=== PATIENT | male | born 1980 | race Caucasian/White ===

== ENCOUNTER 2018-06-13 23:55 | Emergency (ER) | payer MEDICAID ==
[2018-06-14 00:21] VITALS: BP 148/101
[2018-06-14] MEDS ORDERED: Sodium Chloride 0.9% 1,000 ML IV ONE (00:30)
[2018-06-14] MEDS ORDERED: cefTRIAXone 1 GM in Premix Bag 1 BAG IV ONE (00:32)
--- NOTE | 2018-06-14 00:32 | EDM.PDOC ---
ED HPI GENERAL MEDICAL PROBLEM - General Chief Complaint: General Stated Complaint: right side of face swollen Time Seen by Provider: 06/14/18 00:32 Source of Information: Reports: Patient - History of Present Illness INITIAL COMMENTS - FREE TEXT/NARRATIVE: HISTORY AND PHYSICAL: History of present illness: [Patient was seen and [facility] by practitioner Jennifer He was provided Rocephin amoxicillin and Bactrim, he has a history of odontoid disease poor dentition previous dental abscess No fever nausea vomiting chills sweats moderate swelling of right cheek nontender along right gumline] Review of systems: As per history of present illness and below otherwise all systems reviewed and negative. Past medical history: As per history of present illness and as reviewed below otherwise noncontributory. Surgical history: As per history of present illness and as reviewed below otherwise noncontributory. Social history: No reported history of drug or alcohol abuse. Family history: As per history of present illness and as reviewed below otherwise noncontributory. Physical exam: HEENT: Atraumatic, normocephalic, pupils reactive, negative for conjunctival pallor or scleral icterus, mucous membranes moist, throat clear, neck supple, nontender, trachea midline. Lungs: Clear to auscultation, breath sounds equal bilaterally, chest nontender. Heart: S1S2, regular, negative for clicks, rubs, or JVD. Abdomen: Soft, nondistended, nontender. Negative for masses or hepatosplenomegaly. Negative for costovertebral tenderness. Pelvis: Stable nontender. Genitourinary: Deferred. Rectal: Deferred. Extremities: Atraumatic, negative for cords or calf pain. Neurovascular unremarkable. Neuro: Awake, alert, oriented. Cranial nerves II through XII unremarkable. Cerebellum unremarkable. Motor and sensory unremarkable throughout. Exam nonfocal. Diagnostics: [CBC CMP ] Therapeutics: []Gram Rocephin IM Continue amoxicillin Bactrim as prescribed by your provider follow-up with oral surgeon Impression: [] dental abscess Definitive disposition and diagnosis as appropriate pending reevaluation and review of above. right side face Pain Score (Numeric/FACES): 5 - Related Data Allergies Allergy/AdvReac Type Severity Reaction Status Date / Time cat dander Allergy Itching Verified 10/19/14 16:15 haloperidol [From Haldol] Allergy Other Verified 06/14/18 00:18 Home Meds: Home Meds . [No Known Home Meds] 01/26/16 [History] Past Medical History Other HEENT History: Broken teeth Cardiovascular History: Reports: None Respiratory History: Reports: None Gastrointestinal History: Reports: None Other Gastrointestinal History: "acid reflux" Genitourinary History: Reports: None Musculoskeletal History: Reports: None Neurological History: Reports: None Psychiatric History: Reports: ADHD, Anxiety, Bipolar, Depression, Panic Attack Endocrine/Metabolic History: Reports: None Hematologic History: Reports: None Immunologic History: Reports: None Oncologic (Cancer) History: Reports: None Dermatologic History: Reports: None - Infectious Disease History Infectious Disease History: Reports: None - Past Surgical History Head Surgeries/Procedures: Reports: None Social & Family History - Family History Family Medical History: Noncontributory - Caffeine Use Caffeine Use: Reports: Soda - Recreational Drug Use Recreational Drug Use: Yes ED ROS GENERAL - Review of Systems Review Of Systems: See Below ED EXAM, GENERAL - Physical Exam Exam: See Below Course - Vital Signs Last Recorded V/S: Last Vital Signs Temp 97.6 F 06/14/18 00:18 Pulse 89 06/14/18 00:18 Resp 22 H 06/14/18 00:18 BP 148/101 H 06/14/18 00:18 Pulse Ox 96 06/14/18 00:18 - Orders/Labs/Meds Labs: Laboratory Tests 06/14/18 06/14/18 Range/Units 00:42 00:42 WBC 17.26 H (4.0-11.0) K/uL RBC 4.80 (4.50-5.90) M/uL Hgb 15.7 (13.0-17.0) g/dL Hct 44.7 (38.0-50.0) % MCV 93.1 (80.0-98.0) fL MCH 32.7 H (27.0-32.0) pg MCHC 35.1 (31.0-37.0) g/dL RDW Std Deviation 47.7 (28.0-62.0) fl RDW Coeff of Omar 14 (11.0-15.0) % Plt Count 234 (150-400) K/uL MPV 11.30 (7.40-12.00) fL Neut % (Auto) 67.2 (48.0-80.0) % Lymph % (Auto) 20.8 (16.0-40.0) % Cotton % (Auto) 10.1 (0.0-15.0) % Eos % (Auto) 1.4 (0.0-7.0) % Baso % (Auto) 0.5 (0.0-1.5) % Neut # (Auto) 11.6 H (1.4-5.7) K/uL Lymph # (Auto) 3.6 H (0.6-2.4) K/uL Cotton # (Auto) 1.8 H (0.0-0.8) K/uL Eos # (Auto) 0.2 (0.0-0.7) K/uL Baso # (Auto) 0.1 (0.0-0.1) K/uL Nucleated RBC % 0.0 /100WBC Nucleated RBCs # 0 K/uL Sodium 135 L (136-148) mmol/L Potassium 3.4 L (3.5-5.1) mmol/L Chloride 101 (98-107) mmol/L Carbon Dioxide 23.9 (21.0-32.0) mmol/L BUN 8 (7.0-18.0) mg/dL Creatinine 1.0 (0.8-1.3) mg/dL Est Cr Clr Drug Dosing 92.16 mL/min Estimated GFR (MDRD) > 60.0 ml/min Glucose 134 H (74-106) mg/dL Calcium 8.8 (8.5-10.1) mg/dL Total Bilirubin 0.3 (0.2-1.0) mg/dL AST 20 (15-37) IU/L ALT 36 (14-63) IU/L Alkaline Phosphatase 92 (46-116) U/L Total Protein 7.5 (6.4-8.2) g/dL Albumin 3.6 (3.4-5.0) g/dL Globulin 3.9 (2.6-4.0) g/dL Albumin/Globulin Ratio 0.9 (0.9-1.6) Meds: Medications Discontinued Medications Generic Name Dose Route Start Last Admin Trade Name Freq PRN Reason Stop Dose Admin Sodium Chloride 1,000 mls @ 999 mls/hr 06/14/18 00:30 06/14/18 00:53 Normal Saline IV 06/14/18 01:30 999 mls/hr STAT ONE Administration Ceftriaxone Sodium/Dextrose 1 50 mls @ 100 mls/hr 06/14/18 00:32 06/14/18 00: 53 gm/ Premix IV 06/14/18 01:01 100 mls/hr ONETIME ONE Administration Iopamidol 75 ml 06/14/18 02:49 06/14/18 02:50 Isovue Multipack-370 (76%) IVPUSH 06/14/18 02:50 75 ml ONETIME STA Administration Departure - Departure Time of Disposition: 03:21 Disposition: Home, Self-Care 01 Condition: Good Clinical Impression: Dental abscess - Discharge Information Referrals: Kelsie Rodriguez NP [Primary Care Provider] - Forms: ED Department Discharge Additional Instructions: Continue medications as provided by her primary care Return if symptoms persist or worsen Follow up with oral surgeon for continued management The following information is given to patients seen in the emergency department who are being discharged to home. This information is to outline your options for follow-up care. We provide all patients seen in our emergency department with a follow-up referral. The need for follow-up, as well as the timing and circumstances, are variable depending upon the specifics of your emergency department visit. If you don't have a primary care physician on staff, we will provide you with a referral. We always advise you to contact your personal physician following an emergency department visit to inform them of the circumstance of the visit and for follow-up with them and/or the need for any referrals to a consulting specialist. The emergency department will also refer you to a specialist when appropriate. This referral assures that you have the opportunity for follow-up care with a specialist. All of these measure are taken in an effort to provide you with optimal care, which includes your follow-up. Under all circumstances we always encourage you to contact your private physician who remains a resource for coordinating your care. When calling for follow-up care, please make the office aware that this follow-up is from your recent emergency room visit. If for any reason you are refused follow-up, please contact the [facility] emergency department at and asked to speak to the emergency department charge nurse.
[2018-06-14 01:11] LABS: CHLORIDE,CL 101 mmol/L (98-107); SODIUM,NA 135 mmol/L (136-148)
[2018-06-14] MEDS ORDERED: Iopamidol 755 MG/ML 500 ML Multipack Bottle IVPUSH STA (02:49)
--- NOTE | 2018-06-14 03:18 | CT ---
INDICATION: Pain and swelling of right face TECHNIQUE: CT maxillofacial 75 cc Isovue 370 contrast. COMPARISON: None FINDINGS: Facial bones: No fractures or bone lesions. Specifically the nasal bones, temporomandibular joints, maxilla and mandible appear intact. There is poor dentition with multiple dental caries. Orbits and globes: Unremarkable. Sinuses: Thickening of the right maxillary sinus mucosa. Soft tissues: Soft tissue edema of the right cheek and right periorbital region. No abscess or soft tissue gas identified. Right cervical adenopathy measures up to 1.0 cm in diameter. IMPRESSION: Soft tissue edema of the right cheek and right periorbital region consistent with cellulitis. No abscess or soft tissue gas. Reactive right cervical adenopathy. Multiple dental caries. Please note that all CT scans at this facility use dose modulation, iterative reconstruction, and/or weight-based dosing when appropriate to reduce radiation dose to as low as reasonably achievable. Dictated by Zhane Prajapati MD @ Jun 14 2018 3:18AM Signed by Dr. Zhane Prajapati @ Jun 14 2018 3:18AM
== END 2018-06-14 03:43 | disposition home or self-care (01) ==
LOC: MW.ED 23:55
DX: K04.7 Periapical abscess without sinus (principal); Z91.09 Other allergy status, other than to drugs and biological substances; Z88.8 Allergy status to other drugs, medicaments and biological substances
CPT/HCPCS: 70487; 80053; 85025; 96361; 96365; 99283; J0696; J7040; Q9967; 99282

== ENCOUNTER 2020-04-22 17:02 | Emergency (ER) | payer SELFPAY ==
--- NOTE | 2020-04-22 17:37 | EDM.PDOC ---
<Prashanth Cortez - Last Filed: 04/22/20 19:47> ED HPI GENERAL MEDICAL PROBLEM - General Chief Complaint: Gastrointestinal Problem Stated Complaint: DIZZINESS Time Seen by Provider: 04/22/20 17:07 Source of Information: Reports: Patient History Limitations: Reports: No Limitations - Related Data Allergies Allergy/AdvReac Type Severity Reaction Status Date / Time cat dander Allergy Itching Verified 04/22/20 17:17 haloperidol [From Haldol] Allergy Other Verified 04/22/20 17:17 Home Meds: Home Meds OLANZapine [Olanzapine] 5 mg PO DAILY 04/22/20 [History] QUEtiapine [SEROquel] 25 mg PO DAILY 04/22/20 [History] buPROPion HCL [Wellbutrin Xl] 150 mg PO DAILY 04/22/20 [History] Course - Re-Assessments/Exams Free Text/Narrative Re-Assessment/Exam: 04/22/20 19:48 CT imaging grossly unremarkable. Had a long discussion with patient explaining that he needs to follow-up with general surgery versus gastroenterology for colonoscopy to definitively rule out colon cancer. Patient understands. Return precautions were discussed at length Departure - Departure Time of Disposition: 19:48 Disposition: Home, Self-Care 01 Clinical Impression: Hematochezia - Discharge Information Instructions: Lower Gastrointestinal Bleeding Referrals: PCP,None [Primary Care Provider] - Forms: ED Department Discharge Additional Instructions: Take stool softeners, drink plenty of liquids, use baby wipes instead of toilet paper. Can appointment with the surgeon to be reevaluated for possible proximal anoscopy sigmoidoscopy and colonoscopy [facility] - General Surgery [address], [address] [place] [address] You can also follow up with GI in [place] if preferred: [address] [address] The following information is given to patients seen in the emergency department who are being discharged to home. This information is to outline your options for follow-up care. We provide all patients seen in our emergency department with a follow-up referral. The need for follow-up, as well as the timing and circumstances, are variable depending upon the specifics of your emergency department visit. If you don't have a primary care physician on staff, we will provide you with a referral. We always advise you to contact your personal physician following an emergency department visit to inform them of the circumstance of the visit and for follow-up with them and/or the need for any referrals to a consulting specialist. The emergency department will also refer you to a specialist when appropriate. This referral assures that you have the opportunity for follow-up care with a specialist. All of these measure are taken in an effort to provide you with optimal care, which includes your follow-up. Under all circumstances we always encourage you to contact your private physician who remains a resource for coordinating your care. When calling for follow-up care, please make the office aware that this follow-up is from your recent emergency room visit. If for any reason you are refused follow-up, please contact the [facility] Emergency Department at and asked to speak to the emergency department charge nurse. <Malcolm Patel - Last Filed: 04/23/20 11:17> ED HPI GENERAL MEDICAL PROBLEM - History of Present Illness INITIAL COMMENTS - FREE TEXT/NARRATIVE: History of present illness: [Patient is a 39-year-old male presenting to the ED with bloody diarrhea x1 day. Patient's history is significant for anal fissures, and patient's family history is significant for polyps and cancer in other sites in his father and paternal grandfather. Patient states that 2 days ago he had diarrhea, and he states the next bowel movement was hard. He states his bowel movements went from soft to hard until today. He states at 0200 on 04/22/20, he experienced dizziness and presyncopal symptoms that resolved with time. Patient states that 1 hour later he experienced bright red hematochezia with soft stool. Patient s tates he has not had a bowel movement since this episode and is currently not experiencing any pain in his rectum or abdomen.] Review of systems: As per history of present illness and below otherwise all systems reviewed and negative. Past medical history: As per history of present illness and as reviewed below otherwise noncontributory. Surgical history: As per history of present illness and as reviewed below otherwise noncontributory. Social history: No reported history of drug or alcohol abuse. Family history: As per history of present illness and as reviewed below otherwise nonco ntributory. Physical exam: Constitutional - well developed, well-nourished and in no acute distress HEENT - normocephalic, no evidence of trauma - external nose and mouth normal - no mass in neck and no JVD - mucosae moist EYES - full EOM, PERRL, no icterus - no evidence of inflammation, injection, or drainage Respiratory - no respiratory distress, equal bilateral expansion, lungs clear to auscultation and no abnormal lung sounds Cardiovascular - Regular Rhythm with S1 and S2 appreciated and no murmur, gallop or rub. GI - abdomen soft without distension or organomegaly - normal bowel sounds - no guard or rebound Rectal - Anus is without scabs, cuts, fissures, rashes, lesions. Dried blood and dried stool were noted around the anus and within the gluteal cleft. Rectum is soft, within normal limits, and stool palpated is soft. Bright red blood was present on exam glove. Soft, light brown stool was present on exam glove. Hemoccult was positive. Prostate was nontender and the prostate size was within normal limits. Musculoskeletal no gross deformity of long bones or joints - no tenderness, swelling or edema Neurologic - Alert and oriented times four - CN II-XII grossly intact - motor sensory and coordination symmetrically normal Psychiatric - appropriate mood and affect with normal thought content Hematologic - No petechiae or purpura - mucosa appropriate color and sclera not pale - normal nail bed color and refill Integument - no rash or evidence of trauma - normal turgor Diagnostics: [CBC, CMP, lipase, CT abdomen/pelvis with contrast, Hemoccult] Therapeutics: [Normal saline] Impression: [] Plan: [] Definitive disposition and diagnosis as appropriate pending reevaluation and review of above. Past Medical History Other HEENT History: Broken teeth Cardiovascular History: Reports: None Respiratory History: Reports: None Gastrointestinal History: Reports: None Other Gastrointestinal History: "acid reflux" Genitourinary History: Reports: None Musculoskeletal History: Reports: None Neurological History: Reports: None Psychiatric History: Reports: ADHD, Anxiety, Bipolar, Depression, Panic Attack Endocrine/Metabolic History: Reports: None Hematologic History: Reports: None Immunologic History: Reports: None Oncologic (Cancer) History: Reports: None Dermatologic History: Reports: None - Infectious Disease History Infectious Disease History: Reports: None - Past Surgical History Head Surgeries/Procedures: Reports: None Social & Family History - Family History Family Medical History: No Pertinent Family History - Caffeine Use Caffeine Use: Reports: Soda - Recreational Drug Use Recreational Drug Use: Yes ED ROS GENERAL - Review of Systems Review Of Systems: Comprehensive ROS is negative, except as noted in HPI. ED EXAM, GENERAL - Physical Exam Exam: See Below Free Text/Narrative:: My physical exam is in the HPI Course - Vital Signs Text/Narrative:: At the end of my shift I turned the case over to my partner who will make a disposition. Last Recorded V/S: Last Vital Signs Temp 36.6 C 04/22/20 20:00 Pulse 85 04/22/20 20:00 Resp 17 04/22/20 20:00 BP 131/85 04/22/20 20:00 Pulse Ox 94 L 04/22/20 20:00 Orthostatic Blood Pressure [ 135/87 Standing] Orthostatic Blood Pressure [ 122/82 Sitting] Orthostatic Blood Pressure [ 127/82 Supine] - Orders/Labs/Meds Orders: Active Orders 24 hr Category Date Time Status Saline Lock Insert [OM.PC] Stat Oth 04/22/20 17:39 Ordered Labs: Laboratory Tests 04/22/20 04/22/20 Range/Units 17:53 17:53 WBC 13.80 H (4.0-11.0) K/uL RBC 4.73 (4.50-5.90) M/uL Hgb 14.9 (13.0-17.0) g/dL Hct 42.7 (38.0-50.0) % MCV 90.3 (80.0-98.0) fL MCH 31.5 (27.0-32.0) pg MCHC 34.9 (31.0-37.0) g/dL RDW Std Deviation 43.3 (28.0-62.0) fl RDW Coeff of Omar 13 (11.0-15.0) % Plt Count 247 (150-400) K/uL MPV 11.20 (7.40-12.00) fL Neut % (Auto) 61.7 (48.0-80.0) % Lymph % (Auto) 28.1 (16.0-40.0) % [place] % (Auto) 7.8 (0.0-15.0) % Eos % (Auto) 1.8 (0.0-7.0) % Baso % (Auto) 0.6 (0.0-1.5) % Neut # (Auto) 8.5 H (1.4-5.7) K/uL Lymph # (Auto) 3.9 H (0.6-2.4) K/uL [place]ome # (Auto) 1.1 H (0.0-0.8) K/uL Eos # (Auto) 0.3 (0.0-0.7) K/uL Baso # (Auto) 0.1 (0.0-0.1) K/uL Nucleated RBC % 0.0 /100WBC Nucleated RBCs # 0 K/uL Sodium 137 (136-148) mmol/L Potassium 3.6 (3.5-5.1) mmol/L Chloride 102 (98-107) mmol/L Carbon Dioxide 26.4 (21.0-32.0) mmol/L BUN 14 (7.0-18.0) mg/dL Creatinine 1.0 (0.8-1.3) mg/dL Est Cr Clr Drug Dosing 90.38 mL/min Estimated GFR (MDRD) > 60.0 ml/min Glucose 120 H (74-106) mg/dL Calcium 8.6 (8.5-10.1) mg/dL Total Bilirubin 0.2 (0.2-1.0) mg/dL AST 23 (15-37) IU/L ALT 35 (14-63) IU/L Alkaline Phosphatase 82 (46-116) U/L Total Protein 6.9 (6.4-8.2) g/dL Albumin 3.4 (3.4-5.0) g/dL Globulin 3.5 (2.6-4.0) g/dL Albumin/Globulin Ratio 1.0 (0.9-1.6) Lipase 145 (73-393) U/L Meds: Medications Discontinued Medications Generic Name Dose Route Start Last Admin Trade Name Freq PRN Reason Stop Dose Admin Sodium Chloride 1,000 mls @ 999 mls/hr 04/22/20 17:40 04/22/20 18:00 Normal Saline IV 04/22/20 18:40 999 mls/hr .BOLUS ONE Administration Iopamidol 100 ml 04/22/20 18:47 04/22/20 18:47 Iopamidol 755 Mg/Ml 500 Ml Multipack Bottle IVPUSH 04/22/20 18:48 100 ml ONETIME ONE Administration Sodium Chloride 10 ml 04/22/20 17:39 04/22/20 18:00 Sodium Chloride 0.9% 10 Ml Syringe FLUSH 10 ml ASDIRECTED PRN Administration Keep Vein Open Sodium Chloride 2.5 ml 04/22/20 17:39 04/22/20 18:00 Sodium Chloride 0.9% 2.5 Ml Syringe FLUSH 2.5 ml ASDIRECTED PRN Administration Keep Vein Open Departure - Departure Condition: Good Sepsis Event Note (ED) - Evaluation Sepsis Screening Result: No Definite Risk - My Orders Last 24 Hours: My Active Orders 04/22/20 17:39 Saline Lock Insert [OM.PC] Stat - Assessment/Plan Last 24 Hours: My Active Orders 04/22/20 17:39 Saline Lock Insert [OM.PC] Stat
[2020-04-22] MEDS ORDERED: Sodium Chloride 0.9% 2.5 ML Syringe FLUSH PRN (17:39)
[2020-04-22] MEDS ORDERED: Sodium Chloride 0.9% 10 ML Syringe FLUSH PRN (17:39)
[2020-04-22] MEDS ORDERED: Sodium Chloride 0.9% 1,000 ML IV ONE (17:40)
[2020-04-22 18:25] LABS: BLOOD UREA NITROGEN,BUN 14 mg/dL (7.0-18.0); CARBON DIOXIDE,CO2 26.4 mmol/L (21.0-32.0); CHLORIDE,CL 102 mmol/L (98-107); GLUCOSE RANDOM 120 mg/dL (74-106); LIPASE 145 U/L (73-393); POTASSIUM,K 3.6 mmol/L (3.5-5.1); SODIUM,NA 137 mmol/L (136-148)
[2020-04-22] MEDS ORDERED: Iopamidol 755 MG/ML 500 ML Multipack Bottle IVPUSH ONE (18:47)
--- NOTE | 2020-04-22 19:31 | CT ---
INDICATION: Hematochezia TECHNIQUE: CT abdomen and pelvis acquired with IV contrast. 100 mL of Isovue 370 administered. COMPARISON: None available FINDINGS: Lower chest: Unremarkable. Liver: A 2.1 x 2.0 x 2.3 cm inferior right hepatic low-density lesion, demonstrating discontinuous foci of nodular peripheral enhancement. Spleen: Unremarkable. Pancreas: Unremarkable. Gallbladder and bile ducts: Unremarkable. Adrenal glands: Unremarkable. Kidneys: A pelvic right kidney, demonstrating a partially duplicated collecting system. No hydronephrosis. GI tract: No bowel obstruction. A normal appendix. Few descending colon diverticula without moshe diverticulitis. Mild wall thickening in a short segment of the distal descending colon, partially related to focal under distension/peristalsis. Mild focal asymmetrical thickening of the left rectal wall could be related to fecal material. Vascular structures: Unremarkable. Lymph nodes: Unremarkable. Miscellaneous: No significant free fluid or free air. Borderline inguinal lymph nodes. Pelvic Organs: Unremarkable. Bones: An apparently chronic unfused posterolateral left 10th rib fracture. Bilateral L5 spondylolysis. IMPRESSION: No evidence of appendicitis, diverticulitis or bowel obstruction. Mild wall thickening of a short segment of the distal descending colon, partially related to under distention, however mild focal colitis is considered. Mild focal asymmetrical thickening of the left rectal wall could be related to fecal material. Given the history, formal colonic evaluation is recommended to exclude colonic neoplasm. A heterogeneously enhancing 2.3 cm right hepatic lesion suggestive of a hemangioma. This can be confirmed with contrast MRI. A pelvic right kidney. Please note that all CT scans at this facility use dose modulation, iterative reconstruction, and/or weight-based dosing when appropriate to reduce radiation dose to as low as reasonably achievable. Dictated by Nehemias Singh MD @ Apr 22 2020 7:04PM Signed by Dr. Nehemias Singh @ Apr 22 2020 7:29PM
[2020-04-22 20:19] VITALS: BP 131/85; PULSE 85
== END 2020-04-22 20:02 | disposition home or self-care (01) ==
LOC: MW.ED 17:02
DX: K92.1 Melena (principal); Z91.048 Other nonmedicinal substance allergy status; Z88.8 Allergy status to other drugs, medicaments and biological substances; Z79.899 Other long term (current) drug therapy
CPT/HCPCS: 36415; 74177; 80053; 83690; 85025; 99284; J7030; Q9967; 99283

== ENCOUNTER 2020-11-05 12:16 | Emergency (ER) | payer SELFPAY ==
--- NOTE | 2020-11-05 12:46 | EDM.PDOC ---
ED HPI GENERAL MEDICAL PROBLEM - General Chief Complaint: Laceration Stated Complaint: CUT ON THE RIGHT HAND POINTER FINGER Time Seen by Provider: 11/05/20 12:38 Source of Information: Reports: Patient History Limitations: Reports: No Limitations - History of Present Illness INITIAL COMMENTS - FREE TEXT/NARRATIVE: HISTORY AND PHYSICAL: History of present illness: The patient is a 40-year-old male who presents to the emergency room after eating a left index finger on a drill bit while attempting to do some household work. The patient did not do any cleansing prior to arrival. His mother did dress the wound. The patient is unsure of his last tetanus. Patient denies any fever, chills, headache, change in vision, syncope or near syncope. Denies any chest pain, back pain, shortness of breath or cough. Denies any abdominal pain, nausea, vomiting, diarrhea, constipation or dysuria. Has not noted any blood in urine or stool. Patient has been eating and drinking appropriately. Review of systems: As per history of present illness and below otherwise all systems reviewed and negative. Past medical history: As per history of present illness and as reviewed below otherwise noncontributory. Surgical history: As per history of present illness and as reviewed below otherwise noncontributory. Social history: See social history for further information Family history: As per history of present illness and as reviewed below otherwise noncontributory. Physical exam: General: Well developed and well nourished. Alert and orientated x 3. Nontoxic in appearance and in no acute distress. Vital signs are stable and have been reviewed by me. Nursing notes were reviewed. HEENT: Atraumatic, normocephalic, pupils equal and reactive bilaterally, negative for conjunctival pallor or scleral icterus, trachea midline. No drooling or trismus noted. No meningeal signs. No hot potato voice noted. Lungs: Normal work of breathing, no accessory muscles used. Skin: Intact, warm, dry. No lesions or rashes noted. Hematologic: No petechiae or purpra. Mucosa appropriate color and normal nail bed color and refill. Extremities: Left index finger with 1cm "M" shape laceration on lateral edge distal to PIP joint. Moves all extremities per self without difficulty or deficits, negative for cords or calf pain. Neurovascular unremarkable. Neuro: Awake, alert, oriented. Cranial nerves II through XII unremarkable. Cerebellum unremarkable. Motor and sensory unremarkable throughout. Exam nonfocal. Psychiatric: Mood and affect are appropriate. Normal thought process. Answering questions appropriately. Notes: *This patient was seen and evaluated during the 2019 SARS-CoV-2 novel coronavirus pandemic period. Community viral transmission is ongoing at time of this encounter and the emergency department is operating under pandemic response procedures. As stated above the patient is a 40-year-old male who presents to the emergency department after striking his left index finger with a drill bit causing a 1cm "M" shape laceration on lateral edge distal to PIP joint. Please see procedure note. The patient tolerated the skin glue and Steri-Strips well. We will use a cage fingertip splint for protection of the area. 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 I have given the patient detailed instructions on when to return to the emergency department and how to care for his Steri-Strips and skin glue. The patient is agreeable with this discharge plan. I have talked with the patient about today's findings, in addition to providing specific details for plan of care. Reassessment at the time of disposition demonstrates that the patient is in no acute distress. The patient is stable for discharge, counseling was provided and we discussed in great detail signs and symptoms that would prompt them to return to the Emergency Department. Med ication, follow up and supportive care measures were reviewed and discussed. Voices understanding and is agreeable to plan of care. Denies any further questions or concerns at this time. Therapeutics: Metal cage finger splint over tip of left index finger for promotion of healing and patient comfort to wear for 24 to 48 hours. Impression: Laceration left index finger Plan: 1. You were evaluated today on an emergent basis. Your left index finger laceration was evaluated and found to be able to be glued together with skin glue and Steri-Strips. The area clean and dry. Allow the glue to peel up on its own. Do not attempt to remove it. You will need to keep the area covered if you are working. Do not apply any antibiotic ointment while the skin glue is there. Do not submerge the area in water. If you notice any increased redness please return to the emergency room or see your primary care provider. 2. You can alternate Tylenol and ibuprofen as needed for pain and fever managem ent. 3. We encourage you to follow up with your primary care provider and/or recommended specialist in the next few days for re-evaluation and further care/management. 4. If your symptoms should worsen, new symptoms develop or any of the signs and symptoms we discussed should arise please return to the emergency room or call 911 (if needed). Definitive disposition and diagnosis as appropriate pending reevaluation and review of above. Left Finger-Index Pain Score (Numeric/FACES): 3 - Related Data Allergies Allergy/AdvReac Type Severity Reaction Status Date / Time cat dander Allergy Itching Verified 11/05/20 12:29 haloperidol [From Haldol] Allergy Other Verified 11/05/20 12:29 Home Meds: Home Meds buPROPion HCL [Wellbutrin Xl] 150 mg PO DAILY 04/22/20 [History] cloNIDine HCL [Clonidine HCl] 0.1 mg PO DAILY PRN 11/05/20 [History] Past Medical History Other HEENT History: Broken teeth Cardiovascular History: Reports: None Respiratory History: Reports: None Gastrointestinal History: Reports: None Other Gastrointestinal History: "acid reflux" Genitourinary History: Reports: None Musculoskeletal History: Reports: None Neurological History: Reports: None Psychiatric History: Reports: ADHD, Anxiety, Bipolar, Depression, Panic Attack Endocrine/Metabolic History: Reports: None Hematologic History: Reports: None Immunologic History: Reports: None Oncologic (Cancer) History: Reports: None Dermatologic History: Reports: None - Infectious Disease History Infectious Disease History: Reports: None - Past Surgical History Head Surgeries/Procedures: Reports: None Social & Family History - Family History Family Medical History: No Pertinent Family History - Tobacco Use Tobacco Use Status *Q: Current Every Day Tobacco User Years of Tobacco use: 26 Packs/Tins Daily: 1 - Caffeine Use Caffeine Use: Reports: Coffee, Energy Drinks, Soda - Recreational Drug Use Recreational Drug Use: No ED ROS GENERAL - Review of Systems Review Of Systems: Comprehensive ROS is negative, except as noted in HPI. ED EXAM, SKIN/RASH Exam: See Below (See dictation) ED SKIN PROCEDURES - Laceration/Wound Repair Left Lateral Distal Digit - 2nd (Index) Appearance: Superficial Saline Irrigation (cc's): 200 Closed with: Dermabond, Steri-Strips Lac/Wound length In cm: 1 Drain Placement: No Sterile Dressing Applied: None Tetanus Status Addressed: Yes Complications: No Course - Vital Signs Last Recorded V/S: Last Vital Signs Temp 97.4 F 11/05/20 12:32 Pulse 80 11/05/20 12:32 Resp 16 11/05/20 12:32 BP 127/87 11/05/20 12:32 Pulse Ox 96 11/05/20 12:32 - Orders/Labs/Meds Orders: Active Orders 24 hr Category Date Time Status DME for Discharge [COMM] Stat Oth 11/05/20 13:21 Ordered Steri Strips Application [OM.PC] Stat Oth 11/05/20 12:47 Ordered Meds: Medications Discontinued Medications Generic Name Dose Route Start Last Admin Trade Name Freq PRN Reason Stop Dose Admin Octyl Cyanoacrylate 1 applic 11/05/20 12:47 11/05/20 13:01 Octyl 2-Cyanoacrylate 1 Tube TOP 11/05/20 12:48 1 applic ONETIME ONE Administration Departure - Departure Time of Disposition: 12:52 Disposition: Home, Self-Care 01 Condition: Good Clinical Impression: Laceration of finger of left hand Qualifiers: Encounter type: initial encounter Finger: index finger Damage to nail status: with damage Foreign body presence: without foreign body Qualified Code(s): S61.311A - Laceration without foreign body of left index finger with damage to nail, initial encounter - Discharge Information *PRESCRIPTION DRUG MONITORING PROGRAM REVIEWED*: Not Applicable *COPY OF PRESCRIPTION DRUG MONITORING REPORT IN PATIENT BRISA: Not Applicable Instructions: Laceration Care, Adult, Sutures, Alexa, or Adhesive Wound Closure, [id number] Referrals: PCP,None [Primary Care Provider] - Forms: ED Department Discharge Additional Instructions: The following information is given to patients seen in the emergency department who are being discharged to home. This information is to outline your options for follow-up care. We provide all patients seen in our emergency department with a follow-up referral. The need for follow-up, as well as the timing and circumstances, are variable depending upon the specifics of your emergency department visit. If you don't have a primary care physician on staff, we will provide you with a referral. We always advise you to contact your personal physician following an emergency department visit to inform them of the circumstance of the visit and for follow-up with them and/or the need for any referrals to a consulting specialist. The emergency department will also refer you to a specialist when appropriate. T his referral assures that you have the opportunity for follow-up care with a specialist. All of these measure are taken in an effort to provide you with optimal care, which includes your follow-up. Under all circumstances we always encourage you to contact your private physician who remains a resource for coordinating your care. When calling for follow-up care, please make the office aware that this follow-up is from your recent emergency room visit. If for any reason you are refused follow-up, please contact the [facility] Emergency Department at and asked to speak to the emergency department charge nurse. [facility] [address] [place] [id number] [facility] [address] [place] [id number] Plan: 1. You were evaluated today on an emergent basis. Your left index finger l aceration was evaluated and found to be kidney glued together with skin glue and Steri-Strips. The area clean and dry. Allow the glue to peel up on its own. Do not attempt to remove it. You will need to keep the area covered if you are working. Do not apply any antibiotic ointment while the skin glue is there. Do not submerge the area in water. If you notice any increased redness please ret urn to the emergency room or see your primary care provider. 2. You can alternate Tylenol and ibuprofen as needed for pain and fever management. 3. We encourage you to follow up with your primary care provider and/or recommended specialist in the next few days for re-evaluation and further care/management. 4. If your symptoms should worsen, new symptoms develop or any of the signs and symptoms we discussed should arise please return to the emergency room or call 911 (if needed). Sepsis Event Note (ED) - Focused Exam Vital Signs: Vital Signs Temp Pulse Resp BP Pulse Ox 11/05/20 12:32 97.4 F 80 16 127/87 96 - My Orders Last 24 Hours: My Active Orders 11/05/20 12:47 Steri Strips Application [OM.PC] Stat 11/05/20 13:21 DME for Discharge [COMM] Stat - Assessment/Plan Last 24 Hours: My Active Orders 11/05/20 12:47 Steri Strips Application [OM.PC] Stat 11/05/20 13:21 DME for Discharge [COMM] Stat
[2020-11-05] MEDS ORDERED: Octyl 2-Cyanoacrylate 1 Tube TOP ONE (12:47)
[2020-11-05 19:17] VITALS: BP 123/78; PULSE 75
== END 2020-11-05 13:40 | disposition home or self-care (01) ==
LOC: MW.ED 12:16
DX: S61.311A Laceration without foreign body of left index finger with damage to nail, initial encounter (principal); Z88.5 Allergy status to narcotic agent; Z91.09 Other allergy status, other than to drugs and biological substances; Z72.0 Tobacco use; W29.8XXA Contact with other powered hand tools and household machinery, initial encounter; Y92.009 Unspecified place in unspecified non-institutional (private) residence as the place of occurrence of the external cause
CPT/HCPCS: 12001; 99282; A9270